=== PATIENT | male | born 1975 | race Caucasian/White ===

== ENCOUNTER 2020-12-13 19:14 | Emergency (ER) | payer OTHER ==
[2020-12-13 19:30] VITALS: BP 134/88; PULSE 88; RESP 16; TEMP 98.1
--- NOTE | 2020-12-13 20:30 | ED ---
General Adult HPI - General Chief complaint: Recheck/Abnormal Lab/Rx Stated complaint: Possible covid Time Seen by Provider: 12/13/20 20:28 Source: patient Mode of arrival: ambulatory Limitations: no limitations - History of Present Illness Initial comments: Patient presents the ED stating that his best friend was just diagnosed with Covid today, and he states that he is around his friend all the time. Patient has come to the ED today requesting a Covid test. Patient denies having any symptoms at all. Patient denies fever or chills, headache, chest pain, dyspnea, cough or cold symptoms, dizziness, abdominal pain, nausea/vomiting/diarrhea, dysuria or urinary symptoms, or any other symptoms or complaints. Patient states that he has a 5-day-old at home, and he states that he just wants to be tested to be safe. - Related Data Allergies Allergy/AdvReac Type Severity Reaction Status Date / Time No Known Allergies Allergy Verified 12/13/20 19:26 Review of Systems ROS Statement: Those systems with pertinent positive or pertinent negative responses have been documented in the HPI. ROS Other: All systems not noted in ROS Statement are negative. Past Medical History Past Medical History: Hypertension History of Any Multi-Drug Resistant Organisms: None Reported Past Surgical History: Tonsillectomy Past Psychological History: No Psychological Hx Reported Smoking Status: Current every day smoker Past Alcohol Use History: None Reported Past Drug Use History: Marijuana General Exam Limitations: no limitations General appearance: alert, in no apparent distress Head exam: Present: atraumatic, normocephalic Eye exam: Present: normal appearance, EOMI ENT exam: Present: normal oropharynx, mucous membranes moist Neck exam: Present: other (Trachea is in midline) Respiratory exam: Present: normal lung sounds bilaterally. Absent: respiratory distress, wheezes, rales, rhonchi, stridor Cardiovascular Exam: Present: regular rate, normal rhythm, normal heart sounds, other (Normal radial pulses bilaterally) Neurological exam: Present: alert, oriented X3. Absent: motor sensory deficit Psychiatric exam: Present: normal affect, normal mood Skin exam: Present: warm, dry, intact, normal color Course Vital Signs 12/13/20 19:27 Temperature 98.1 F Pulse Rate 88 Respiratory 16 Rate Blood Pressure 134/88 O2 Sat by Pulse 98 Oximetry Medical Decision Making - Medical Decision Making Patient's rapid Covid test is negative. I did explain to the patient that despite his Covid test being negative, he should still quarantine for 10 days, as he may have a false-negative test or he may have just recently been exposed, and as such, his test is not positive yet. Patient was also counseled about Covid symptoms and what to watch for and return to the ED for. Patient feels comfortable this plan. - Lab Data Lab Results 12/13/20 Range/Units 19:30 Coronavirus (PCR) Not Detected (Not Detectd) Disposition Clinical Impression: Exposure to COVID-19 virus Disposition: HOME SELF-CARE Condition: Stable Instructions (If sedation given, give patient instructions): Coronavirus Disease 2019 (COVID-19) Additional Instructions: Return to the ER immediately should you develop shortness of breath, chest pain, a high fever, feeling dizzy or faint, or new or worsening symptoms. Follow up closely with your primary care provider. Is patient prescribed a controlled substance at d/c from ED?: No Referrals: None,Stated [Primary Care Provider] - 1-2 days Bony Hall MD [REFERRING] - 1-2 days Time of Disposition: 20:40
== END 2020-12-13 20:38 | disposition home or self-care (01) ==
LOC: EC 19:14
DX: Z20.822 Contact with and (suspected) exposure to COVID-19 (principal); I10 Essential (primary) hypertension; F17.200 Nicotine dependence, unspecified, uncomplicated
CPT/HCPCS: 87635; 99283

== ENCOUNTER 2020-12-17 21:47 | Emergency (ER) | payer OTHER ==
[2020-12-17 22:56] VITALS: RESP 18
--- NOTE | 2020-12-18 00:13 | XR ---
EXAMINATION TYPE: XR chest 1V DATE OF EXAM: 12/18/2020 COMPARISON: NONE HISTORY: Short of breath TECHNIQUE: Single view FINDINGS: Heart and mediastinum are normal. Lungs are clear. Diaphragm is normal. Bony thorax is inta ct. Pulmonary vascularity is normal. IMPRESSION: Normal chest. Normal heart.
--- NOTE | 2020-12-18 00:57 | ED ---
General Adult HPI - General Chief complaint: Shortness of Breath Stated complaint: SOB,Fever,cough Time Seen by Provider: 12/17/20 23:53 Source: patient Mode of arrival: ambulatory - History of Present Illness Initial comments: 45-year-old male patient presents to the emergency department today for evaluation of nasal congestion and drainage as well as sore throat. States he started to feel like his chest is getting tight and congested as well. Reports mild dry cough. Denies sputum production. States he has felt feverish and has had sweats at night. Tested negative for COVID-19 4 days ago. Has been in contact with someone who tested positive however. He does have a 9-day-old baby at home is quite concerned. Patient denies any recent rash, cough, shortness of breath, chest pain, back pain, numbness, tingling, dizziness, weakness, hematuria, dysuria, urinary urgency, urinary frequency, headache, visual changes, or any other complaints. - Related Data Previous Rx's Medication Instructions Recorded Albuterol Sulfate [Proair Hfa] 1 - 2 puff INHALATION Q6HR PRN #1 12/18/20 inhaler guaiFENesin-DM 600/30MG [Mucinex 2 each PO Q12HR PRN #20 tab.er.12h 12/18/20 Dm] Allergies Allergy/AdvReac Type Severity Reaction Status Date / Time No Known Allergies Allergy Verified 12/13/20 19:26 Review of Systems ROS Statement: Those systems with pertinent positive or pertinent negative responses have been documented in the HPI. ROS Other: All systems not noted in ROS Statement are negative. Past Medical History Past Medical History: Hypertension History of Any Multi-Drug Resistant Organisms: None Reported Past Surgical History: Tonsillectomy Past Psychological History: No Psychological Hx Reported Smoking Status: Current every day smoker Past Alcohol Use History: None Reported Past Drug Use History: Marijuana General Exam General appearance: alert, in no apparent distress, other (Physical well- developed, well-nourished adult male patient in no acute distress. Vital signs upon presentation are temperature 97.8F, pulse 88, respirations 18, blood pressure 114/78, pulse ox 97% on room air.) Eye exam: Present: normal appearance, PERRL, EOMI. Absent: scleral icterus, conjunctival injection, periorbital swelling ENT exam: Present: normal exam, normal oropharynx, mucous membranes moist Respiratory exam: Present: normal lung sounds bilaterally. Absent: respiratory distress, wheezes, rales, rhonchi, stridor Cardiovascular Exam: Present: regular rate, normal rhythm, normal heart sounds. Absent: systolic murmur, diastolic murmur, rubs, gallop, clicks GI/Abdominal exam: Present: soft, normal bowel sounds. Absent: distended, tenderness, guarding, rebound, rigid Neurological exam: Present: alert, oriented X3, CN II-XII intact Psychiatric exam: Present: normal affect, normal mood Skin exam: Present: warm, dry, intact, normal color. Absent: rash Course Vital Signs 12/17/20 12/17/20 12/18/20 22:50 22:58 01:09 Temperature 97.8 F 97.6 F Pulse Rate 88 61 Respiratory 18 18 18 Rate Blood Pressure 114/78 107/72 O2 Sat by Pulse 97 97 Oximetry Medical Decision Making - Medical Decision Making 45-year-old male patient presents to the emergency department today for evaluation of upper respiratory congestion and cough. Physical examination is unremarkable. Lungs are clear to auscultation with good air movement. Vital signs are within normal ranges. Chest x-ray is negative. He did test negative for COVID-19 here. Did discuss findings and results with him. We did discuss the possibility that he could still be positive and went through a safety instructions regarding this. He is instructed to follow-up with his primary care physician for recheck in 1-2 days. Given prescriptions for Mucinex and Pro Air. Return parameters were discussed in detail. He verbalizes understanding and agrees with this plan. Case discussed with my attending Dr. Garcia. - Lab Data Lab Results 12/17/20 Range/Units 22:56 Coronavirus (PCR) Not Detected (Not Detectd) - Radiology Data Radiology results: report reviewed, image reviewed One view x-ray of the chest was obtained. Report was reviewed in its entirety. Impression by Dr. Watt shows normal chest. Normal heart. Disposition Clinical Impression: Viral upper respiratory illness Disposition: HOME SELF-CARE Condition: Good Instructions (If sedation given, give patient instructions): Upper Respiratory Infection (ED) Additional Instructions: Increase fluids. Rest. Take medications as directed. Follow-up through primary care physician for recheck in 1-2 days. Return to the emergency department for any new, worsening, or concerning symptoms. Prescriptions: guaiFENesin-DM 600/30MG [Mucinex Dm] 2 each PO Q12HR PRN #20 tab.er.12h PRN Reason: Cough Albuterol Sulfate [Proair Hfa] 1 - 2 puff INHALATION Q6HR PRN #1 inhaler PRN Reason: Shortness Of Breath Is patient prescribed a controlled substance at d/c from ED?: No Referrals: None,Stated [Primary Care Provider] - 1-2 days Time of Disposition: 00:57
[2020-12-18 01:10] VITALS: BP 107/72; PULSE 61; TEMP 97.6
== END 2020-12-18 01:10 | disposition home or self-care (01) ==
LOC: EC 21:47
DX: J39.8 Other specified diseases of upper respiratory tract (principal); B97.89 Other viral agents as the cause of diseases classified elsewhere; F17.200 Nicotine dependence, unspecified, uncomplicated; Z20.822 Contact with and (suspected) exposure to COVID-19
CPT/HCPCS: 71045; 87635; 99285

== ENCOUNTER 2021-04-27 08:01 | Emergency (ER) | payer OTHER ==
[2021-04-27 08:13] VITALS: BP 120/83; PULSE 87; RESP 18; TEMP 97.9
--- NOTE | 2021-04-27 09:15 | XR ---
EXAMINATION TYPE: XR chest 2V DATE OF EXAM: 04/27/2021 COMPARISON: 12/18/2020 HISTORY: 45-year-old male with cough TECHNIQUE: PA and lateral views FINDINGS: The cardiomediastinal silhouette, aorta, and pulmonary vasculature are within normal limits. Lungs an d pleural spaces are clear. IMPRESSION: No acute cardiopulmonary process.
--- NOTE | 2021-04-27 09:25 | ED ---
SOB HPI - General Chief Complaint: Shortness of Breath Stated Complaint: Covid test Time Seen by Provider: 04/27/21 08:10 Source: patient, RN notes reviewed Mode of arrival: ambulatory Limitations: no limitations - History of Present Illness Initial Comments: 45-year-old male presents emergency Department chief complaint of cough congestion shortness breath. Patient states he started feeling sick 2 weeks ago with his last 4 days symptoms change. 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 Patient states she's had fevers of bodyaches no chest pain no neck pain or headache currently. - Related Data Home Medications Medication Instructions Recorded Confirmed No Known Home Medications 04/27/21 04/27/21 Allergies Allergy/AdvReac Type Severity Reaction Status Date / Time No Known Allergies Allergy Verified 04/27/21 08:39 Review of Systems ROS Statement: Those systems with pertinent positive or pertinent negative responses have been documented in the HPI. ROS Other: All systems not noted in ROS Statement are negative. Past Medical History Past Medical History: Hypertension History of Any Multi-Drug Resistant Organisms: None Reported Past Surgical History: Tonsillectomy Past Psychological History: No Psychological Hx Reported Smoking Status: Current every day smoker Past Alcohol Use History: None Reported Past Drug Use History: Marijuana General Exam Limitations: no limitations General appearance: alert, in no apparent distress Head exam: Present: atraumatic, normocephalic, normal inspection Eye exam: Present: normal appearance, PERRL, EOMI. Absent: scleral icterus, conjunctival injection, periorbital swelling ENT exam: Present: normal exam, normal oropharynx, mucous membranes moist Neck exam: Present: normal inspection. Absent: tenderness, meningismus, lymphadenopathy Respiratory exam: Present: normal lung sounds bilaterally. Absent: respiratory distress, wheezes, rales, rhonchi, stridor Cardiovascular Exam: Present: regular rate, normal rhythm, normal heart sounds. Absent: systolic murmur, diastolic murmur, rubs, gallop, clicks Course Vital Signs 04/27/21 08:08 Temperature 97.9 F Pulse Rate 87 Respiratory 18 Rate Blood Pressure 120/83 O2 Sat by Pulse 97 Oximetry Medical Decision Making - Medical Decision Making Patient has positive or COVID-19 x-rays unremarkable patient recommended and offered monoclonal antibodies patient refuses be discharged in stable condition return parameters were discussed. - Lab Data Lab Results 08/16/21 Range/Units 08:16 Coronavirus (PCR) Detected A (Not Detectd) Disposition Clinical Impression: COVID-19 Disposition: HOME SELF-CARE Condition: Stable Instructions (If sedation given, give patient instructions): Coronavirus Disease 2019 (COVID-19) Additional Instructions: Please return to the Emergency Department if symptoms worsen or any other concerns. Is patient prescribed a controlled substance at d/c from ED?: No Referrals: None,Stated [Primary Care Provider] - 1-2 days Time of Disposition: 09:25
== END 2021-04-27 09:41 | disposition home or self-care (01) ==
LOC: EC 08:01
DX: U07.1 COVID-19 (principal); I10 Essential (primary) hypertension; F17.200 Nicotine dependence, unspecified, uncomplicated
CPT/HCPCS: 71046; 87635; 99285

== ENCOUNTER 2021-06-24 12:25 | Emergency (ER) | payer OTHER ==
[2021-06-24 13:02] VITALS: BP 114/80; PULSE 95; RESP 20; TEMP 98.4
== END 2021-06-24 15:00 | disposition left against medical advice (07) ==
LOC: EC 12:25
DX: J06.9 Acute upper respiratory infection, unspecified (principal); U07.1 COVID-19
CPT/HCPCS: 87635; 99499